=== PATIENT | female | born 2000 | race Hispanic/Latino ===

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

== ENCOUNTER 2019-08-28 16:09 | Day surgery (SDC) | payer OTHER ==
[2019-08-28 16:35] VITALS: BP 134/86; TEMP 98.9; BMI 40.0
[2019-08-28] MEDS ORDERED: hydrALAZINE 20 MG/ML VIAL SLOW IVP PRN (17:11)
[2019-08-28] MEDS ORDERED: Acetaminophen 500 MG TAB PO SCH (17:30)
--- NOTE | 2019-08-28 18:29 | PDOC.FPROB ---
Addendum entered and electronically signed by Mavis Bates MD 08/28/19 22:47: Recommend close follow-up at [facility] for continued bp monitoring and further workup for preE. Flako Pinon Original Note: FMR OB H&P: HPI - History of Present Illness Chief Complaint: Headache, Bloody Discharge History of Present Illness: 19 yo @ 39.0 wks by 15.2 US with history of anemia of presents for headache and bloody discharge. She says the headache is her whole head. She did not take any medication before coming in today. She has no visual changes, tinnitus, or photophobia. She endorses good movement and no contractions. She says she has had vaginal discharge for the last 2 weeks, but this morning she had a gush of discharge with blood after having sexual intercourse. Primary Care Physician: Marquis Waller FMR OB H&P: Current - Care : 2 Para: 0010 Gestational age: 39.0 wks Due date: 09/04/19 Dating Criteria: 15.2 US - OB Labs Blood type: O RH: positive Antibody Screen: negative HIV: negative RPR: negative HepBsAg: negative Rubella: non-immune 1 hour gtt: 114, Negative GBS: negative FMR OB H&P: History - Past Medical History PMH: Anemia of , Obesity - Surgical History Sx History: L arm ganglion cyst removal - Social History Social History: No smoking, drinking, or recreational drugs. No pets at home. - Family History Family History: MGM: DMII FMR OB H&P: Medications - Current Home Medications: Medication Instructions Recorded Confirmed Type Ferrous Sulfate 325 mg PO DAILY 08/28/19 08/28/19 History Vitamin 1 tablet PO DAILY 08/28/19 08/28/19 History Allergies/Adverse Reactions: Allergies Allergy/AdvReac Type Severity Reaction Status Date / Time amoxicillin Allergy Mild Rash Verified 08/28/19 16:37 FMR OB H&P: ROS - Review of Systems General: denies: fever/chills Eyes: denies: vision changes ENT: reports: nasal congestion, rhinorrhea Cardiovascular: reports: edema. denies: chest pain Respiratory: reports: congestion. denies: cough Gastrointestinal: denies: abdominal pain Genitourinary (Female): reports: vaginal discharge, vaginal bleeding, vaginal pressure. denies: dysuria, contractions Musculoskeletal: denies: pain, tenderness Neurologic: reports: headache. denies: numbness, weakness Integumentary: denies: itching Breast: denies: skin changes FMR OB H&P: Vital Signs - Maternal Vital signs: Vital Signs - First Documented Temp Pulse Resp BP 98.9 F 96 18 134/86 08/28/19 16:34 08/28/19 16:34 08/28/19 16:34 08/28/19 16:34 - Heart Tones Baseline: 140 Variability: moderate Acceleration: present Deceleration: absent Category: category 1 [place] contractions every: 5-10 mins FMR OB H&P: Physical Exam - Physical Exam General: NAD, awake, alert and oriented HEENT: normocephalic and atraumatic, PERRLA, oropharynx clear Neck: supple, no LAD Heart: RRR, normal S1/S2 General: CTAB Abdomen: soft, gravid, fundus(cm), non-tender, bowel sound present Musculoskeletal: pulses present Neurological: cranial nerves II through XII intact, no focal deficit Lymphatic: no unusual bruising or bleeding, no purpura, no petechia Psychiatric: normal mood and affect - Pelvic Exam Vulva: no blood SVE: Closed, thick, high FMR OB H&P: A/P - Problem List (1) Headache Status: Acute Code(s): R51 - HEADACHE Qualifiers: Headache chronicity pattern: acute headache (2) Elevated blood pressure reading Status: Acute Code(s): R03.0 - ELEVATED BLOOD-PRESSURE READING, W/O DIAGNOSIS OF HTN (3) Vaginal discharge, bloody Status: Acute Code(s): N89.8 - OTHER SPECIFIED NONINFLAMMATORY DISORDERS OF VAGINA Disposition: 19 yo @ 39.0 wks by 15.2 US with history of anemia of presents for headache and bloody discharge. 1. Headache Headache is whole head and has no tinnitus, photophobia, or visual change * Resolved with Tylenol 2. Elevated blood pressure BP: 142/83, 135/90 * Told to continue to monitor blood pressures * One high blood pressure at [facility]: 143/89 * Given return precautions 3. Bloody Discharge Discharge occurred this morning after sexual intercourse * No blood on check * Closed/High/Thick * Not feeling contractions 4. Anemia of No records with last H&H * Continue taking iron * Follow-up with [facility] Dispo: Home. Continue taking Iron for Anemia and PNV. Follow-up with [facility] tomorrow for US. Monitor blood pressures. Discussion: Date/Time: 08/28/191827 This H&P was discussed with [] and [] who agree with the above documentation and plan. Addendum - Attending - Attending Attestation Date/Time: 08/28/19 8905 I personally evaluated the patient and discussed the management with Dr. Condon. I agree with the History, Examination, Assessment and Plan documented above.
[2019-08-28] MEDS ORDERED: Oxymetazoline HCl 0.05% (30 ML BOT) NS SCH (21:00)
== END 2019-08-28 19:01 | disposition home or self-care (01) ==
LOC: L&D/OP 16:09
PROVIDERS: ATTEND Obstetrics & Gynecology
DX: O99.89 Other specified diseases and conditions complicating pregnancy, childbirth and the puerperium (principal); R51 Headache; N89.8 Other specified noninflammatory disorders of vagina; R03.0 Elevated blood-pressure reading, without diagnosis of hypertension; O99.013 Anemia complicating pregnancy, third trimester; D64.9 Anemia, unspecified; O99.213 Obesity complicating pregnancy, third trimester; E66.9 Obesity, unspecified; Z3A.39 39 weeks gestation of pregnancy; Z79.899 Other long term (current) drug therapy; Z88.0 Allergy status to penicillin

== ENCOUNTER 2019-09-02 18:53 | Inpatient (IN) | payer OTHER ==
[2019-09-02 19:58] VITALS: BMI 40.0
--- NOTE | 2019-09-02 20:27 | PDOC.LDHP ---
Labor and Delivery H&P Chief complaint: scheduled induction HPI: Patient is a 19yo @ 39.5wga by 15.2wk fredis presenting for eIOL. AUGUSTINA 09/04/2019 Patient reports that she is feeling well. Feels baby moving. Had one episode of vaginal spotting on thursday that was pink on the toilet paper but has since resolved. Denies feeling contractions. Denies gush of fluid. Denies cp, sob, abdominal pain, vision changes, headache. Reports some intermittent swelling throughout the but this has improved today. Does not desire an epidural. has been complicated by: +Chlamydia September 2018, repeat testing negative january 2019 Rubella non-immune Anemia of , H/H 10.8/.22 may 2019 S>D on US 08/04: EFW 3053g, [place] 82.2%, ANTHONY 7.59 PCP: Dimas Due date: 09/04/19 Dating criteria: second trimester ultrasound Grav: 2 Para: 0 OB History Details: Spontaneous 2018 Current complications: other (+Chlamydia September 2018, repeat testing negative Rubella non-immune Anemia of , H/H 10.05/21.22 may 2019 S >D on US 08/04: EFW 3053g, [place]lock 82.2%, ANTHONY 7.59) Abnormal US findings: No Current medications: pre-sylvia vitamins, iron Previous surgical history: other (cyst removal L arm) Allergies/Adverse Reactions: Allergies Allergy/AdvReac Type Severity Reaction Status Date / Time amoxicillin Allergy Mild Rash Verified 09/02/19 19:42 Social history: none - Physical Exam Vital signs reviewed and normal: yes General: NAD, resting Heart: RRR Lungs: nonlabored breathing Abdomen: NTTP Extremeties: trace edema FHT: category 1, variability present [place] contractions every: 4-7min - Vaginal Exam cm dilated: 0 Effacement: 0% Station: -1 - OB Labs Blood type: O RH: positive Antibody Screen: negative HIV: negative RPR: negative HEPSAg: negative 1 hour GCT: negative GBS: negative Rubella: non-immune - Assessment L&D Assessment: elective induction at term - Plan Plan: admit to L&D, cervical ripening, labor augmentation if indicated -: Patient is a 19yo @ 39.5wga by 15.2wk fredis presenting for eIOL. AUGUSTINA 09/04/2019 #sIUP #Term eIOL -0/thick/-1 @ 2000 -FHT: reactive strip, baseline 130, ctx q4-7min -anatomy scan: posterior placenta -VSS -GBS negative -will start cytotec -cervical checks q4h with cytotec #Anemia of -H/H 10.8/31.1 may 2019 -patient has been taking iron -will continue to monitor #Rubella non-immune -will encourage vaccination post-delivery #Hx of Chlamydia -negative january 2019 Dispo: admit to L&D for eIOL at 39.5wga. FHT reactive strip. Begin cytotec, cervical checks q4h or sooner as necessary Code: Full PCP: Adin This case has been discussed with Dr. Pulliam who is agreeable with the current plan of care. Addendum - Attending - Attending Attestation Date/Time: 09/03/19 0910 I discussed the patient with Dr Hu at time of admission last night. I personally evaluated the patient and discussed the management with Dr. Van this morning. I agree with the History, Examination, Assessment and Plan documented above with any addition or exceptions noted below.
[2019-09-02] MEDS ORDERED: hydrALAZINE 20 MG/ML VIAL SLOW IVP PRN (21:08)
[2019-09-02] MEDS ORDERED: Promethazine HCl 25 MG/ML VIAL IM PRN (21:08)
[2019-09-02] MEDS ORDERED: Lidocaine 1% (PF) 30 ML VIAL SC PRN (21:08)
[2019-09-02] MEDS ORDERED: Misoprostol 200 MCG TAB PR PRN (21:08)
[2019-09-02] MEDS ORDERED: Carboprost 250 MCG/ML AMP IM PRN (21:08)
[2019-09-02] MEDS ORDERED: Ondansetron PF 4 MG/2 ML Vial IVP PRN (21:08)
[2019-09-02] MEDS ORDERED: Ibuprofen 800 MG TAB PO PRN (21:08)
[2019-09-02] MEDS ORDERED: NS / Oxytocin 40 units/1000ml 1,000 ML IV PRN (21:08)
[2019-09-02] MEDS ORDERED: Methylergonovine 0.2 MG/ML VIAL IM PRN (21:08)
[2019-09-02] MEDS ORDERED: Acetaminophen 500 MG TAB PO PRN (21:08)
[2019-09-02] MEDS: Lactated Ringer's 1,000 ML IV SCH (21:27)
[2019-09-02] MEDS: Misoprostol 100 MCG TAB VAG SCH (21:27)
[2019-09-02 21:29] LABS: Mean Corpuscular HGB CONC 34.5 g/dL (32.0-36.0); Mean Corpuscular Hemoglobin 30.8 pg (25.0-35.0); Mean Corpuscular Volume 89.1 fL (78.0-98.0); Mean Platelet Volume 7.1 fL (7.4-10.4); Platelet Count 358 thou/uL (130-400); RBC Distribution Width 16.9 % (11.5-14.5); Red Blood Cell (RBC) Count 3.91 mill/uL (4.00-5.20); White Blood Cell (WBC) Count 11.9 thou/uL (4.8-10.8)
[2019-09-02 22:20] LABS: Syphilis Antibody Nonreactive (Nonreactive); Syphilis Antibody Index 0.04 S/CO (<1.00 Non-Reactive)
[2019-09-02 22:56] LABS: HBSAg Index 0.15 S/CO (0-0.99); Hep B Surf Ag Non-Reactive S/CO (NonReactive)
--- NOTE | 2019-09-03 01:41 | PDOC.LDPN ---
Labor & Delivery Progress Note - Subjective Subjective: comfortable - Objective Vital signs reviewed and normal: yes General: NAD, resting SVE: 1.5/60/-1 FHT: category 1, variability present [place] contractions every: 1-3 - Assessment (1) Current Visit: Yes Status: Acute (2) Encounter for elective induction of labor Code(s): Z34.90 - ENCNTR FOR SUPRVSN OF NORMAL , UNSP, UNSP TRIMESTER Current Visit: Yes Status: Acute Plan: continue plan of care, labor augmentation -: Patient is a 19yo @ 39.6wga by 15.2wk sonrafi presenting for eIOL. AUGUSTINA 09/04/2019 #sIUP #Term eIOL -1.5/60/-1 @ 0135 -FHT: reactive strip, baseline 120, ctx q1-3min -anatomy scan: posterior placenta -VSS -GBS negative -one cytotec placed @ 2114, will hold off on placing another cytotec until contractions space more apart -cervical checks q4h #Anemia of -H/H 10.8/31.1 may 2019 -patient has been taking iron -will continue to monitor #Rubella non-immune -will encourage vaccination post-delivery #Hx of Chlamydia -negative january 2019 Dispo: admitted to L&D for eIOL at 39.6wga. FHT reactive strip. Will wait for contractions to space before placing another cytotec, cervical checks q4h or sooner as necessary Code: Full PCP: Adin This case has been discussed with Dr. Pulliam who is agreeable with the current plan of care.
[2019-09-03] MEDS: Lactated Ringer's 1,000 ML IV SCH ×2 (03:15→17:11)
--- NOTE | 2019-09-03 04:11 | PDOC.LDPN ---
Labor & Delivery Progress Note - Assessment (1) Current Visit: Yes Status: Acute (2) Encounter for elective induction of labor Code(s): Z34.90 - ENCNTR FOR SUPRVSN OF NORMAL , UNSP, UNSP TRIMESTER Current Visit: Yes Status: Acute Plan: continue plan of care, labor augmentation -: Patient is a 19yo @ 39.6wga by 15.2wk sono presenting for eIOL. AUGUSTINA 09/04/2019 #sIUP #Term eIOL -/-1 @ 0400 -FHT: reactive strip, baseline 125, ctx q1-3min -anatomy scan: posterior placenta -VSS, BP 130s-140s/80s-90s, one 153/98 but this was during the cervical check -GBS negative -one cytotec placed @ 2114, will continue to hold off on placing another cytotec until contractions space more apart -cervical checks q4h #Anemia of -H/H 10.8/31.1 may 2019 -patient has been taking iron -will continue to monitor #Rubella non-immune -will encourage vaccination post-delivery #Hx of Chlamydia -negative january 2019 Dispo: admitted to L&D for eIOL at 39.6wga. FHT reactive strip. Will wait for contractions to space before placing another cytotec, cervical checks q4h or sooner as necessary Code: Full PCP: Adin This case has been discussed with Dr. Pulliam who is agreeable with the current plan of care.
--- NOTE | 2019-09-03 05:38 | PDOC.BPN ---
- Brief Progress Note Patient has had a few blood pressures in the 140s-150s/80s-90s, and these started when patient started to feel painful contractions. Patient has been coached about the possibility of stadol or an epidural, and she has refused. Upon evaluation of the patient, she is clearly in pain during contractions, though denies headaches, vision changes, cp, sob. She has 2+ reflexes. With coaching through deep breathing and measuring BP in between contractions, her BP was 138/83. As her BP came down when measured in between contractions with relaxation, the previous elevated BP are likely due to being measured during contractions/when the patient is in acute pain. Will continue to keep a close watch on patient's blood pressure at this time. FHT continue to be reactive. The patient was evaluated by and the case discussed with Dr. Steel who is in agreement with the current plan of care.
--- NOTE | 2019-09-03 07:17 | PDOC.BPN ---
- Brief Progress Note Repeat BP measurement 132/82, again 129/75. Had discussion with nursing staff to increase BP measurements frequency and to ensure that BP measurement is occurring while patient is not gavino/ in pain. Patient is currently asking for stadol, so we will continue to monitor her BP s/p stadol. Patient continues to deny headaches, changes in vision, cp, and sob. Patient has no hx of cHTN or pre-e, and BP have been stable recently while taking them during breaks in contractions. However, due to elevated BP overnight , will order pre-e labs and continue frequent BP checks.
[2019-09-03] MEDS: Butorphanol Tartrate 1 MG/ML VIAL SLOW IVP PRN ×2 (07:23→08:48)
[2019-09-03 08:14] LABS: #Basophils 0.1 thou/uL (0.0-0.2); #Eosinphils 0.1 thou/uL (0.0-0.7); #Lymphocytes 2.6 thou/uL (1.20-3.40); #Monocytes 1.1 thou/uL (0.11-0.59); #Neutrophils 10.8 thou/uL (1.40-6.50); %Basophils 0.4 % (0.0-1.0); %Eosinophils 0.6 % (0.0-10.0); %Lymphocytes 17.7 % (28.0-48.0); %Monocytes 7.2 % (0.0-4.0); %Neutrophils 74.1 % (31.0-61.0); Hemoglobin 11.9 g/dL (12.0-16.0); Mean Corpuscular HGB CONC 34.4 g/dL (32.0-36.0); Mean Corpuscular Hemoglobin 30.6 pg (25.0-35.0); Mean Platelet Volume 6.9 fL (7.4-10.4); Platelet Count 328 thou/uL (130-400); RBC Distribution Width 16.8 % (11.5-14.5); Red Blood Cell (RBC) Count 3.89 mill/uL (4.00-5.20); White Blood Cell (WBC) Count 14.5 thou/uL (4.8-10.8)
[2019-09-03 08:38] LABS: ALT (SGPT) 11 U/L (8-55); AST (SGOT) 20 U/L (5-34); Albumin 3.1 g/dL (3.5-5.0); Alkaline Phosphatase 206 U/L (40-100); Anion Gap 15 mmol/L (10-20); BUN (Urea Nitrogen) 7 mg/dL (7.0-18.7); Bilirubin, Total 0.4 mg/dL (0.2-1.2); Calc. Creatinine Clearance 227 mL/min (70-130); Calcium 9.1 mg/dL (7.8-10.44); Carbon Dioxide 19 mmol/L (22-29); Chloride 108 mmol/L (98-107); Estimated GFR-MDRD Greater than 90; Globulin 3.5 g/dL (2.4-3.5); Glucose 90 mg/dL (70-105); Potassium 3.5 mmol/L (3.5-5.1); Protein, Total 6.6 g/dL (6.0-8.3); Sodium 138 mmol/L (136-145)
--- NOTE | 2019-09-03 09:03 | PDOC.LDPN ---
Labor & Delivery Progress Note - Subjective Subjective: painful contractions - Objective Abnormal vital signs: multiple mild range BP's and one severe range General: NAD Uterine fundus: palpable contractions SVE: 4.5/90/0 @ 0800 FHT: category 1, variability present [place] contractions every: 1-2 min - Assessment (1) Gestational HTN Code(s): O13.9 - GESTATIONAL HTN W/O SIGNIFICANT PROTEINURIA, UNSP TRIMESTER Current Visit: Yes Status: Acute Comment: Pt now meets criteria for gHTN and has had one severe range BP CBC, CMP normal -Urine protein:creatinine ratio pending -Continue with induction -If any further severe range BP's then will treat with hydralazine and start magnesium (2) Encounter for elective induction of labor Code(s): Z34.90 - ENCNTR FOR SUPRVSN OF NORMAL , UNSP, UNSP TRIMESTER Current Visit: Yes Status: Acute Comment: Pt s/p 1 dose cytotec and has continued to make change -Will expectantly manage and if pt stops making change will do amniotomy Plan: continue plan of care
--- NOTE | 2019-09-03 09:32 | PDOC.LDPN ---
Labor & Delivery Progress Note - Subjective Subjective: painful contractions - Objective Abnormal vital signs: mild range BP's since the one severe range General: NAD SVE: 7/90/0 @ 0930 FHT: category 1, variability present AROM: clear fluid - Assessment (1) Gestational HTN Code(s): O13.9 - GESTATIONAL HTN W/O SIGNIFICANT PROTEINURIA, UNSP TRIMESTER Current Visit: Yes Status: Acute Comment: Pt now meets criteria for gHTN and has had one severe range BP CBC, CMP normal -Urine protein:creatinine ratio pending -Continue with induction -If any further severe range BP's then will treat with hydralazine and start magnesium (2) Encounter for elective induction of labor Code(s): Z34.90 - ENCNTR FOR SUPRVSN OF NORMAL , UNSP, UNSP TRIMESTER Current Visit: Yes Status: Acute Comment: Pt s/p 1 dose cytotec and has continued to make change AROM clear fluid -continue cervical checks q2h Plan: continue plan of care
[2019-09-03 09:46] LABS: Creatinine, Urine 35.99 mg/dL (47-110)
--- NOTE | 2019-09-03 10:03 | PDOC.BPN ---
- Brief Progress Note Reviewed labwork Urine protein:creatinine ratio 5.86 Diagnosed pt with pre-eclampsia without severe features -Will monitor BP's closely and if develops severe features will start magnesium
--- NOTE | 2019-09-03 11:39 | PDOC.OPDEL ---
OB Operative/Delivery Note Delivery Dr/Surgeon: William Duque - Additional Findings/Plan Compilations/Other Findings: Vaginal Delivery note Delivering Physician: William Duque Attending: [place] Procedure: Spontaneous Vaginal Delivery Anesthesia: Local for Repair QBL: 448 ml Pre-op Diagnosis: 1. Term intrauterine in labor 2. H/o Preeclampsia 3. Anemia of 4. Rubella non-immune 5. Hx of Chlamydia Post-op Diagnosis: 1. Term intrauterine , delivered 2. same as above Indications: A 19y/o female now presented for eIOL (AUGUSTINA 09/04/19). Delivery Note: This is 19y/o female now @ 39.6 wks who delivered a viable F infant at 1057 on 09/03/19. Following an antepartum course significant for preeclampsia, a vigorous F was delivered over an intact perineum in the occipitoanterior position. Anterior Shoulder and then remainder of the body delivered. Nuchal cord x 2, easily reduced. The head was held down and mouth and nares were bulb suctioned. Cord clamped and cut and cord blood collected. Placenta delivered intact with a 3 vessel cord noted. Fundal massage was performed and the fundus was firm. The cervix and vagina were inspected and found right sided vaginal laceration and repaired with 3-0 Vicryl suture in the usual fashion with good approximation and hemostasis after a local anesthetic Lidocaine 1% 10mL was injected at site. Infant went to nursery in good condition for routine care. Apgars were 9/9 at 1 & 5 minutes, respectively. Patient tolerated delivery well and went to after routine recovery/ care. This delivery was supervised by Dr. Luis Alfredo Pulliam and Dr. Gissell Duque. Addendum - Attending - Attending Attestation Date/Time: 09/03/192110 I personally supervised and assisted with the delivery.
[2019-09-03] MEDS ORDERED: Ondansetron PF 4 MG/2 ML Vial IVP PRN (13:43)
[2019-09-03] MEDS ORDERED: diphenhydrAMINE 25 MG CAP PO PRN (13:43)
[2019-09-03] MEDS ORDERED: Bisacodyl 10 MG SUPP PR PRN (13:43)
[2019-09-03] MEDS ORDERED: NS / Oxytocin 40 units/1000ml 1,000 ML IV SCH (13:43)
[2019-09-03] MEDS ORDERED: Milk Of Magnesia 30 ML UDCUP PO PRN (13:43)
[2019-09-03] MEDS ORDERED: Benzocaine-Menthol 82.5 ML CAN TOP PRN (13:43)
[2019-09-03] MEDS ORDERED: Lanolin Ointment 7 GM TUBE TOP PRN (13:43)
[2019-09-03] MEDS ORDERED: hydrALAZINE 20 MG/ML VIAL SLOW IVP PRN (13:43)
[2019-09-03] MEDS ORDERED: Preparation H Ointment 28 GM TUBE PR PRN (13:43)
[2019-09-03] MEDS: Ibuprofen 800 MG TAB PO SCH ×2 (14:35→21:20)
[2019-09-03] MEDS: Misoprostol 100 MCG TAB VAG SCH ×4 (17:11→18:57)
[2019-09-03] MEDS: Ferrous Sulfate 325 MG TAB PO SCH (17:15)
[2019-09-03] MEDS: Docusate Calcium (SURFAK) 240 MG CAP PO SCH (21:20)
[2019-09-04] MEDS: Ibuprofen 800 MG TAB PO SCH ×3 (06:47→21:57)
--- NOTE | 2019-09-04 07:58 | PDOC.OBPPN ---
FMR OB PN: Subj - Interval History Day: 1 19 y/o @ 39.6 WGA delivered via @ 1057 on 09/03. Pt reports abdominal pain has been well controlled with ibuprofen. Minimal lochia. Breast and bottle feeding. Tolerating PO. Has been ambulating to the bathroom. FMR OB PN: Obj - Maternal Vital signs: BP: 123/69 HR: 87 RR: 20 Tmax: 98.3 Pox: 99% on RA Wt: 96kg FMR OB PN: Exam - Physical Exam General: NAD, awake, alert and oriented HEENT: MMM, conjunctiva clear, grossly normal vision, grossly normal hearing Neck: supple, no LAD Heart: RRR, normal S1/S2, no murmurs/rubs/gallops, pulses present, no edema General: CTAB, no respiratory distress, good air movement, no rales/rhonchi, no wheezing Abdomen: soft, fundus(cm) (firm below umbilicus), non-tender Musculoskeletal: pulses present Neurological: no focal deficit Skin: good tugor, capillary refill <2 seconds Psychiatric: intact recent and remote memory, good judgement and insight FMR OB PN: Data - Labs Lab results: Laboratory Results - last 24 hr 09/03/19 09/03/19 09/03/19 07:54 07:54 08:52 WBC 14.5 H RBC 3.89 L Hgb 11.9 L Hct 34.6 L MCV 89.0 MCH 30.6 MCHC 34.4 RDW 16.8 H Plt Count 328 MPV 6.9 L Neutrophils % 74.1 H Lymphocytes % 17.7 L Monocytes % 7.2 H Eosinophils % 0.6 Basophils % 0.4 Neutrophils # 10.8 H Lymphocytes # 2.6 Monocytes # 1.1 H Eosinophils # 0.1 Basophils # 0.1 Sodium 138 Potassium 3.5 Chloride 108 H Carbon Dioxide 19 L Anion Gap 15 BUN 7 Creatinine 0.60 Estimated GFR (MDRD) Greater than 90 Glucose 90 Calcium 9.1 Total Bilirubin 0.4 AST 20 ALT 11 Alkaline Phosphatase 206 H Serum Total Protein 6.6 Albumin 3.1 L Globulin 3.5 Albumin/Globulin Ratio 0.9 L U Random Total Protein 211 H Urine Creatinine 35.99 L FMR OB PN: A/P - Problem List (1) Term delivered Current Visit: Yes Status: Acute Code(s): O80 - ENCOUNTER FOR FULL-TERM UNCOMPLICATED DELIVERY Comment: PPD#1 s/p -Continue routine care -PNV -Ibuprofen for pain control -Encourage ambulation -Encourage breast feeding (2) Preeclampsia Current Visit: Yes Status: Acute Code(s): O14.90 - UNSPECIFIED PRE-ECLAMPSIA , UNSPECIFIED TRIMESTER Qualifiers: Trimester: third trimester Qualified Code(s): O14.93 - Unspecified pre- eclampsia, third trimester Comment: Pt developed pre-eclampsia without severe features at the time of delivery BP's have been WNL since time of delivery -Continue to monitor BP's until d/c -Will need aspirin in any future (3) Rubella nonimmune status, delivered, current hospitalization Current Visit: Yes Status: Acute Code(s): O99.89 - OTH DISEASES AND CONDITIONS COMPL PREG/CHLDBRTH; Z28.3 - UNDERIMMUNIZATION STATUS Comment: MMR vaccine prior to d/c Disposition: Continue to monitor on Discussion: Date/Time: 09/04/19 3286 This H&P was discussed with Dr. Pulliam who agrees with the above documentation and plan. Signature: Celina Van MD, PGY-3 Addendum - Attending - Attending Attestation Date/Time: 09/04/19 1206 I personally evaluated the patient and discussed the management with Dr. Van. I agree with the History, Examination, Assessment and Plan documented above with any addition or exceptions noted below.
[2019-09-04] MEDS: Ferrous Sulfate 325 MG TAB PO SCH ×2 (08:21→16:53)
[2019-09-04] MEDS ORDERED: Measles/Mumps/Rubella 10 MCG/0.5 ML VIAL SC ONE (09:00)
[2019-09-04] MEDS: Docusate Calcium (SURFAK) 240 MG CAP PO SCH ×2 (09:06→21:58)
[2019-09-04] MEDS: Prenatal Vitamin 1 TAB PO SCH (09:07)
[2019-09-04] MEDS ORDERED: Adacel (T-DAP) 0.5 ML SYRINGE IM ONE (13:43)
--- NOTE | 2019-09-05 07:10 | PDOC.OBPPN ---
FMR OB PN: Subj - Interval History Hospital Day: 3 Day: 2 Doing well this morning. Lochia similar to normal period, decreased from yesterday. Ambulating without difficulty, tolerating PO well without n/v. BM and voiding without difficulty. Denies any f/v, SOB, NAZARIO, vision changes. LE edema improving. Eager for discharge today. Minimal pain. FMR OB PN: Obj - Maternal Vital signs: BP: 133/63 HR: 77 RR: 16 Tmax: 98.6 Pox: 99% on RA Wt: 96kg - Lochia Lochia: similar to period, decreased from yesterday - Pain Management Intervention: oral medication FMR OB PN: Exam - Physical Exam General: NAD, awake, alert and oriented HEENT: PERRLA, MMM Neck: supple Heart: RRR, normal S1/S2, no murmurs/rubs/gallops, other (1+ non-pitting edema to LE ankles) General: CTAB, no respiratory distress, good air movement, no rales/rhonchi, no wheezing Abdomen: soft, non-tender, bowel sound present, other (fundus located below umbilicus, firm, nontender) Neurological: no focal deficit Skin: no rash Psychiatric: intact recent and remote memory, good judgement and insight - Pelvic Exam : non-tender FMR OB PN: A/P - Problem List (1) Preeclampsia Current Visit: Yes Status: Acute Code(s): O14.90 - UNSPECIFIED PRE-ECLAMPSIA , UNSPECIFIED TRIMESTER Qualifiers: Trimester: third trimester Qualified Code(s): O14.93 - Unspecified pre- eclampsia, third trimester (2) Rubella nonimmune status, delivered, current hospitalization Current Visit: Yes Status: Acute Code(s): O99.89 - OTH DISEASES AND CONDITIONS COMPL PREG/CHLDBRTH; Z28.3 - UNDERIMMUNIZATION STATUS (3) Term delivered Current Visit: Yes Status: Acute Code(s): O80 - ENCOUNTER FOR FULL-TERM UNCOMPLICATED DELIVERY Disposition: 19yo G2 now [id number] who s/p on 09/03 @1057 @39.6wk complicated by PreE w/o severe features now PPD#2 #Term , delivered - doing very well this morning, eager for discharge, VSS - Cont routine care - PNV daily - Pain well-controlled with PO motrin - Cont to encourage , nurse consulted for assistance, pt would benefit from breastpump - anticipate d/c this PM pending clinical course and baby's bilirubin #PreE - Pt developed PreE w/o severe features at time of delivery - BPs have been WNL since delivery - No s/s of severe features on exam or history - Cont to monitor BP until d/c - Pt will need ASA at future pregnancies #Rubella nonimmune - cont to monitor mom and baby - MMR vaccine given VTE: Ambulation IVF: SL Diet: Regular Dispo: PPD#2, eager for discharge, discharge pending baby and mom clinical course, anticipate discharge this afternoon. Discussion: Date/Time: 09/05/19 0707 This H&P was discussed with Dr. Pulliam who agree with the above documentation and plan. Addendum - Attending - Attending Attestation Date/Time: 09/05/19 1110 I personally evaluated the patient and discussed the management with Dr. Condon. I agree with the History, Examination, Assessment and Plan documented above with any addition or exceptions noted below.
[2019-09-05] MEDS: Ibuprofen 800 MG TAB PO SCH (07:20)
[2019-09-05 07:53] VITALS: BP 95/52; TEMP 98.7
[2019-09-05] MEDS: Docusate Calcium (SURFAK) 240 MG CAP PO SCH (08:30)
[2019-09-05] MEDS: Prenatal Vitamin 1 TAB PO SCH (08:30)
[2019-09-05] MEDS: Ferrous Sulfate 325 MG TAB PO SCH (08:30)
== END 2019-09-05 13:35 | disposition home or self-care (01) | DRG 807 ==
LOC: L&D 18:53 → 3SE 09-03 13:34
PROVIDERS: ADMIT Family Medicine; ATTEND Family Medicine
PROC: 10E0XZZ Delivery of Products of Conception, External Approach (ICD-10-PCS; principal; 2019-09-03)
PROC: 10907ZC Drainage of Amniotic Fluid, Therapeutic from Products of Conception, Via Natural or Artificial Opening (ICD-10-PCS; 2019-09-03)
PROC: 3E0P7VZ Introduction of Hormone into Female Reproductive, Via Natural or Artificial Opening (ICD-10-PCS; 2019-09-03)
PROC: 3E033VJ Introduction of Other Hormone into Peripheral Vein, Percutaneous Approach (ICD-10-PCS; 2019-09-03)
PROC: 0HQ9XZZ Repair Perineum Skin, External Approach (ICD-10-PCS; 2019-09-03)
DX: O69.81X0 Labor and delivery complicated by cord around neck, without compression, not applicable or unspecified (principal); Z37.0 Single live birth; O99.02 Anemia complicating childbirth; D64.9 Anemia, unspecified; O70.0 First degree perineal laceration during delivery; O14.04 Mild to moderate pre-eclampsia, complicating childbirth; Z3A.39 39 weeks gestation of pregnancy
CPT/HCPCS: 36415; 80053; 82570; 84156; 85025; 85027; 86780; 86850; 86900; 86901; 87340; 90707; J0595